=== PATIENT | male | born 1980 | race Caucasian/White ===

== ENCOUNTER 2019-01-08 15:51 | Inpatient (IN) | payer SELFPAY ==
[~2019-01-08 15:51] MED LIST: NA CHLORIDE 0.9% 1,000 ML ONE; NA CHLORIDE 0.9% 2,000 ML ONE; PROPOFOL 1,000 MG/100 ML VIAL IV ONE; RSI MEDICATION KIT IV ONE
[2019-01-08] MEDS ORDERED: ROCURONIUM 50 MG/5 ML VIAL IV ONE ×2 (16:01→16:03)
[2019-01-08 16:20] LABS: Absolute Lymphocytes (CBC) 0.8 K/uL (0.7-4.9); Basophils % 0.6 % (0-1.3); Hematocrit 37.8 % (39.6-49.0); Lymphocytes % 19.8 % (15.3-44.8); MPV 8.5 fL (7.6-11.3); RBC Red Blood Cell Count 3.83 M/uL (4.33-5.43)
--- NOTE | 2019-01-08 16:22 | RAD REPORT ---
EXAM DESCRIPTION: RAD - Chest Single View - 01/08/2019 4:16 pm CLINICAL HISTORY: Overdose, intubation COMPARISON: None. TECHNIQUE: AP portable chest image was obtained 1611 hours . FINDINGS: Endotracheal tube is in place with the tip at the T3-4 level several cm above the ángela. NG tube is curled in the stomach. Lung base atelectasis changes are present. No diffuse pulmonary edema. Heart and vasculature are norm al. No measurable pleural effusion and no pneumothorax. No acute bony abnormality seen. No acute aort ic findings suspected. IMPRESSION: ET tube and NG tube in good position. Lung base atelectasis with no diffuse pulmonary edema.
[2019-01-08 16:31] LABS: Protime INR 1.06
--- NOTE | 2019-01-08 16:34 | RAD REPORT ---
EXAM DESCRIPTION: CT - CTHCSPWOC - 01/08/2019 4:20 pm CLINICAL HISTORY: Unresponsive, unknown injury COMPARISON: None. TECHNIQUE: Axial 5 mm thick images of the head were obtained. Axial 2 mm thick images of the cervic al spine were obtained with sagittal and coronal reconstruction images generated and reviewed. All CT scans are performed using dose optimization technique as appropriate and may include automated exposure control or mA/KV adjustment according to patient size. FINDINGS: No intracranial hemorrhage, mass, edema or acute intracranial finding. No suspicion for acute infarct ion. No extra-axial fluid collections. Mastoid air cells and paranasal sinuses are clear. No globe or orbit abnormality seen. Cervical body height and alignment are normal. No disk space narrowing. No fracture or acute bony abn ormality. Central canal detail is inherently limited. Minimal posterior endplate spurring at C5-6. No paraspinal mass or hematoma. IMPRESSION: Negative CT head examination for acute or significant finding. Negative CT cervical spine examination for acute or significant finding.
[2019-01-08 16:54] LABS: ALT/SGPT 45 U/L (12-78); AST/SGOT 34 U/L (15-37); Alkaline Phosphatase 57 U/L (45-117); BUN Blood Urea Nitrogen 9 mg/dL (7-18); Bicarbonate 25 mmol/L (21-32); Bilirubin Direct 0.1 mg/dL (0-0.2); Bilirubin Total 0.3 mg/dL (0.2-1.0); Glucose Level 127 mg/dL (74-106); Potassium 3.7 mmol/L (3.5-5.1); Protein, Total 6.9 g/dL (6.4-8.2); Sodium Level 136 mmol/L (136-145); Troponin (Emerg Dept Use Only) < 0.02 ng/mL (0.0-0.045)
[2019-01-08] MEDS ORDERED: LORazepam 2 MG/ML VIAL ONE ×2 (17:21→21:07)
[2019-01-08] MEDS ORDERED: NA CHLORIDE 0.9% 1,000 ML ONE (17:22)
[2019-01-08 17:31] LABS: Arterial Blood Carboxyhemoglob 3.9 % (0-1.5); Blood Gas Oxyhemoglobin 93.2 % (94-97); Blood O2 Saturation 97.9 % (92-98.5)
--- NOTE | 2019-01-08 17:49 | ER ---
Nurse's Notes [facility] Name: Pancho Cameron Jr Age: 38 yrs Sex: Male : 1980 Arrival Date: 01/08/2019 Time: 15:59 Bed 3 Private MD: Diagnosis: Altered mental status, unspecified;Alcohol abuse with intoxication;Drug Abuse;Respiratory failure, unspecified with hypoxia Presentation: 01/08 15:55 Presenting complaint: EMS states: pt found unresponsive in his apartment by a friend, sv last seen around 1430. Known crack use stated, Narcan 2 mg IVP given with no response. Transition of care: patient was not received from another setting of care. Onset of symptoms was January 08, 2019. Risk Assessment: Do you want to hurt yourself or someone else? Unable to obtain. Care prior to arrival: Oral intubation, Cervical collar in place. Medication(s) given: Narcan IV initiated. 18 GA, in the left antecubital area, Oxygen administered. via AMBU bag. 15:55 Method Of Arrival: EMS: [facility] sv 15:55 Acuity: AMANDA 1 sv 15:55 Initial Sepsis Screen: Does the patient meet any 2 criteria? Altered Mental Status. sv Does the patient have a suspected source of infection? No. Patient's initial sepsis screen is negative. Historical: - Allergies: 16:17 Unable to obtain; sv - PMHx: 16:17 Unable to obtain; sv - PSHx: 16:17 Unable to obtain; sv - Immunization history:: Adult Immunizations unknown. - Social history:: Smoking status: unknown. - Ebola Screening: : No symptoms or risks identified at this time. Screenin:00 Abuse screen: Denies threats or abuse. Denies injuries from another. Nutritional rr5 screening: No deficits noted. Tuberculosis screening: No symptoms or risk factors identified. Fall Risk Secondary diagnosis (15 points) intubated. IV access (20 points). Gait- Impaired (20 pts.). Mental Status- Overestimates/Forgets Limitations (15 pts.). Total Tillman Fall Scale indicates High Risk Score (45 or more points). Fall prevention measures have been instituted. Side Rails Up X 2 Placed Close to Nursing Station Frequent Obs/Assessments Occuring As available patient and family educated on Fall Prevention Program and Strategies. Assessment: 16:20 General: Appears in no apparent distress. well groomed, well developed, well nourished, sg Behavior is calm, cooperative, appropriate for age. Pain: Unable to use pain scale. Does not appear to understand pain scale. Neuro: Level of Consciousness is unresponsive, Oriented to none Facial symmetry appears normal, Pupils are PERRLA. Cardiovascular: Capillary refill is brisk in bilateral fingers Patient's skin is warm and dry. Chest pain is denied. Respiratory: Airway is patent Trachea midline Respiratory effort is unlabored, relaxed, orally intubated Respiratory pattern is symmetrical, hypoventilation. Respiratory: Airway via oral airway via oral intubation. GI: Abdomen is round non-distended, Bowel sounds present X 4 quads. : No signs and/or symptoms were reported regarding the genitourinary system. EENT: No signs and/or symptoms were reported regarding the EENT system. Derm: Skin is pink, warm \T\ dry. Musculoskeletal: Circulation, motion, and sensation intact. Range of motion: intact in all extremities. 16:58 Reassessment: pt appears restless, moving arms and legs, Anusha FIGUEROA at bedside ordered sg to administer Propofol IVPB at calculated rate to reach a level of sedation, pt began on propofol at this time. 17:45 Reassessment: Patient appears in no apparent distress at this time. no signs of sg distress noted at this time, will continue to monitor. 18:40 Reassessment: Patient appears in no apparent distress at this time. pt remains sedated sg with IV medications at this time, intubated, srx2 bed in low and locked position, remains on monitors with door open, pt to be admitted to ICU, no family or friends at bedside at this time. 19:20 General: patient is on ER hold. see [employer] charting for the documentation.. rr5 01/09 11:50 Reassessment: Carley from [facility] at bedside to evaluate pt. hb Vital Signs: 01/08 15:50 BP 100 / 59; Pulse 91; Resp 20; Pulse Ox 99% on ETT ambu; sv 16:00 BP 101 / 67; Pulse 100; Resp 17; Pulse Ox 99% on ETT ambu; sv 16:10 BP 96 / 62; Pulse 102; Resp 13; Pulse Ox 100% on ETT vent; sv 16:15 Weight 100 kg; sv 16:25 BP 108 / 74; Pulse 10; Pulse Ox 100% on ETT vent; sv 16:35 BP 99 / 70; Pulse 93; Resp 16; Pulse Ox 100% on 50% FiO2 ETT vent; sv 17:25 BP 119 / 84; Pulse 89; Resp 16; Pulse Ox 100% on ETT vent; sv 18:00 BP 119 / 86; Pulse 81; Resp 18; Pulse Ox 100% ; sg 18:30 BP 125 / 93; Pulse 85 MON; Resp 16 A; Pulse Ox 100% on 35% FiO2 ETT vent; sg 19:20 BP 116 / 76; Pulse 78; Resp 16 A; Temp 98.5; Pulse Ox 100% on 30% FiO2 ETT vent; rr5 [place] Coma Score: 17:49 Eye Response: to voice(3). Verbal Response: none(1). Motor Response: withdraws from jr8 pain(4). Modifying Factors: Intubated. Total: 8. ED Course: 15:50 Maintain EMS IV. Dressing intact. Good blood return noted. Site clean \T\ dry. Gauge \T\ sv site: 18G L AC. 15:58 Inserted saline lock: 18 gauge in right antecubital area, using aseptic technique. sv ,using aseptic technique. done by Sunil TOUSSAINT. 15:59 Patient arrived in ED. jr8 15:59 Bruce Anglin PA is PHCP. jr8 15:59 Esequiel Castillo MD is Attending Physician. jr8 16:05 NGT: inserted 16 Fr. other orally verified placement of air over stomach, verified sv return of gastric contents, Placement verified by X-ray, to intermittent suction. Returned gastric contents. Patient tolerated well. 16:13 Bettye Sow, RN is Primary Nurse. sv 16:[address] via stretcher. sv 16:16 Acetaminophen Sent. sv 16:16 Basic Metabolic Panel Sent. sv 16:17 CBC with Diff Sent. sv 16:17 ETOH Level Sent. sv 16:17 Hepatic Function Sent. sv 16:17 PT-INR Sent. sv 16:17 Ptt, Activated Sent. sv 16:17 Salicylate Sent. sv 16:17 Troponin (emerg Dept Use Only) Sent. sv 16:20 Triage completed. sv 16:20 Patient has correct armband on for positive identification. Placed in gown. Call light sg in reach. Side rails up X2. security monitor on. Pulse ox on. NIBP on. Warm blanket given. Head of bed elevated. 16:38 Primary Nurse role handed off by Bettye Sow, BREANA sv 16:38 Sunil Vitale, RN is Primary Nurse. sv 16:38 Torres cath inserted, using sterile technique, 16 Fr., by ca, balloon inflated, to sv gravity drainage, urine specimen collected. returned clear yellow urine. Patient tolerated well. Criticore placed. 17:04 EKG done, by aviation technician. reviewed by Bruce FIGUEROA. sm3 17:34 glucometer results - FOR PT WITH NO ID Sent. sv 17:34 XRAY Chest (1 view) Sent. sv 17:34 CT Head Brain wo Cont Sent. sv 17:34 Urine Drug Screen Sent. sv 17:37 Urine Dipstick--Ancillary (enter results) Sent. sv 17:38 Urine collected: Torres catheter specimen, clear, faiza colored. jb1 17:46 Bria Teresa MD is Hospitalizing Provider. jr8 19:20 No provider procedures requiring assistance completed. Patient admitted, IV remains in rr5 place. intact, No redness/swelling at site. 01/09 09:08 called the [facility] at [phone] Teresa the hospitalist. eb 10:35 Krishna from [facility] called to say someone would be here within the hour. eb 16:10 Arm band placed on. sv Administered Medications: Discontinued: Propofol 5 mcg/kg/min IV at calculated rate continuous; titrate per protocol (titrate by 5-10mcg/kg/min every 10 min to max rate of 50 mcg/kg/min) 01/08 15:58 Drug: NS 0.9% 1000 ml Route: IV; Rate: 1000 ml; Site: right antecubital; sv 17:00 Follow up: Response: No adverse reaction; IV Status: Completed infusion; IV Intake: sg 1000ml 15:58 Drug: NS 0.9% 1000 ml Route: IV; Rate: 1000 ml; Site: left antecubital; sv 17:00 Follow up: Response: No adverse reaction; IV Status: Completed infusion; IV Intake: sg 1000ml 16:03 Drug: Propofol 5 mcg/kg/min Route: IV; Rate: calculated rate; Site: left antecubital; sv 16:08 Drug: Rocuronium 80 mg Route: IVP; Site: right antecubital; sv 18:45 Follow up: Response: No adverse reaction sg 17:00 Drug: Propofol 5 mcg/kg/min Route: IV; Rate: calculated rate; Site: right antecubital; sg 17:40 Follow up: Response: No adverse reaction; Rate change 25 calculated rate sg 18:00 Follow up: Rate change 35 calculated rate; IV Status: Infusion continued sg 18:46 Drug: Banana Bag - (NS 0.9% 1000 ml, foLIC Acid 1 mg, Thiamine 100 mg, Multivitamin 1 sg amp) Route: IV; Rate: calculated rate; Site: left antecubital; 19:30 Follow up: Response: No adverse reaction; IV Status: Infusion continued upon admission; rr5 IV Intake: 100ml Intake: 17:00 IV: 1000ml; Total: 1000ml. sg 17:00 IV: 1000ml; Total: 2000ml. sg 19:30 IV: 100ml; Total: 2100ml. rr5 Outcome: 17:48 Decision to Hospitalize by Provider. jr8 19:20 Admitted to ER Hold. Please see [facility] for further documentation. rr5 19:20 Condition: stable 19:20 Instructed on the need for admit. 09 13:56 Patient left the ED. sv Signatures: Altaf Bravo Stephanie, RN RN Sunil Vitale RN RN Bruce Anglin PA PA jr8 Maria Peña RN RN Tiffani Oliveira Shakira [facility] Gus Geronimo, BREANA RN rr5 Corrections: (The following items were deleted from the chart) 07:41 01/08 16:20 Neuro: Level of Consciousness is awake, alert, obeys commands, Oriented to sg person, place, time, Wheel Truer are equal bilaterally Moves all extremities. Full function Gait is steady, Speech is normal, Facial symmetry appears normal, Pupils are PERRLA, sg
--- NOTE | 2019-01-08 17:50 | EDPHYS ---
Physician Documentation [facility] Name: Pancho Cameron Jr Age: 38 yrs Sex: Male : 1980 Arrival Date: 01/08/2019 Time: 15:59 Bed 3 Private MD: ED Physician Esequiel Castillo HPI: 01/08 17:49 This 38 yrs old Male presents to ER via EMS with complaints of Unresponsive. jr8 17:49 The patient's problem is reported as altered mental status, unresponsive, to noxious jr8 stimuli. Onset: The symptoms/episode began/occurred just prior to arrival. Context: Possible contributing factors include: Patient is known to have used drugs: Persons on scene reports that the patient is known to use cocaine and was last seen normal at 1330. Associated signs and symptoms: Pertinent negatives: diaphoresis, seizure. Patient's baseline: Neuro: alert and fully oriented. Unable to obtain HPI due to patient is on ventilator. Pt presented via [facility] who were called out for an unresponsive patient, on scene pt was unresponsive to painful stimulus and unable to maintain own airway per EMS, intubated on scene and transported here. Upon arrival to Trauma room 3 pt is intubates, pupils dilated and responsive to light. . Historical: - Allergies: 16:17 Unable to obtain; sv - PMHx: 16:17 Unable to obtain; sv - PSHx: 16:17 Unable to obtain; sv - Immunization history:: Adult Immunizations unknown. - Social history:: Smoking status: unknown. - Ebola Screening: : No symptoms or risks identified at this time. ROS: 17:49 Unable to obtain ROS due to patient is on ventilator. jr8 Exam: 17:49 Radiologist reports: Unremarkable CT head/C-spine jr8 17:49 Head/Face: Normocephalic, atraumatic. 17:49 Eyes: Pupils: equal, round, and reactive to light and accomodation, dilated, bilaterally, equal, Lids and lashes: appear normal. 17:49 Neck: External neck: no acute changes, C-spine: C-collar placed COPY CLERK, crepitus, is not appreciated, Trachea: is midline with no obvious abnormalities. 17:49 Chest/axilla: Inspection: normal, no abrasion, no abscess, no assymetry, no cellulitis, no deformity, no ecchymosis, no evidence of flail chest, no paradoxical chest wall movement, no puncture, no rash, no scar(s). 17:49 Cardiovascular: Rate: tachycardic, Rhythm: regular, Pulses: Pulses are 2+ in right radial artery and left radial artery. Heart sounds: normal, normal S1and S2, Edema: is not appreciated, JVD: is not appreciated. 17:49 Respiratory: Pt intubated and on ventilator, Rate of 14 with equal breath sounds DIANA. No wheezing, ronchi, or rales noted. . 17:49 Abdomen/GI: Inspection: abdomen appears normal, Bowel sounds: normal, in all quadrants, Palpation: soft, in all quadrants. 17:49 : Male external genitalia: normal, no abrasion, no discharge, no erythema, no injury, no swelling. 17:49 Musculoskeletal/extremity: Extremities: No obvious deformities noted to extremities. No signs of trauma. . 17:49 Skin: Appearance: Color: normal in color, Temperature: normal temperature, warm, Moisture: dry. 17:49 Neuro: Pt intubated and on ventilator, pt with purposeful movement and will open eyes when verbally stimulated. Otherwise unable to fully assess neuro status. . Vital Signs: 15:50 BP 100 / 59; Pulse 91; Resp 20; Pulse Ox 99% on ETT ambu; sv 16:00 BP 101 / 67; Pulse 100; Resp 17; Pulse Ox 99% on ETT ambu; sv 16:10 BP 96 / 62; Pulse 102; Resp 13; Pulse Ox 100% on ETT vent; sv 16:15 Weight 100 kg; sv 16:25 BP 108 / 74; Pulse 10; Pulse Ox 100% on ETT vent; sv 16:35 BP 99 / 70; Pulse 93; Resp 16; Pulse Ox 100% on 50% FiO2 ETT vent; sv 17:25 BP 119 / 84; Pulse 89; Resp 16; Pulse Ox 100% on ETT vent; sv 18:00 BP 119 / 86; Pulse 81; Resp 18; Pulse Ox 100% ; sg 18:30 BP 125 / 93; Pulse 85 MON; Resp 16 A; Pulse Ox 100% on 35% FiO2 ETT vent; sg 19:20 BP 116 / 76; Pulse 78; Resp 16 A; Temp 98.5; Pulse Ox 100% on 30% FiO2 ETT vent; rr5 Jason Coma Score: 17:49 Eye Response: to voice(3). Verbal Response: none(1). Motor Response: withdraws from jr8 pain(4). Modifying Factors: Intubated. Total: 8. Procedures: 17:43 Central Line: the site was prepped with Betadine, in sterile fashion, a triple lumen jr8 catheter was inserted, in the right femoral vein, in 1 attempts. placement was verified, by blood return, the site was dressed with 4X4s, Tegaderm, foam tape, using sterile technique, the patient tolerated the procedure, well. MDM: 15:59 Patient medically screened. [facility] 17:43 Data reviewed: vital signs, nurses notes, lab test result(s), EKG, radiologic studies, jr8 CT scan, plain films. Data interpreted: Pulse oximetry: on ventilator is 100 %. Interpretation: normal. Counseling: I had a detailed discussion with the patient and/or guardian regarding: the historical points, exam findings, and any diagnostic results supporting the discharge/admit diagnosis, lab results, radiology results, the need for further work-up and treatment in the hospital. Physician consultation: Bria Teresa MD was called at 17:43, was contacted at 17:43, regarding admission, to the ICU, consult, patient's condition, and will see patient in ED. 01/08 15:59 Order name: Acetaminophen [facility] 01/08 15:59 Order name: Basic Metabolic Panel [facility] 01/08 15:59 Order name: CBC with Diff [facility] 01/08 15:59 Order name: ETOH Level [facility] 01/08 15:59 Order name: Hepatic Function [facility] 01/08 15:59 Order name: PT-INR [facility] 01/08 15:59 Order name: Ptt, Activated [facility] 01/08 15:59 Order name: Salicylate [facility] 01/08 15:59 Order name: Urine Drug Screen [facility] 01/08 15:59 Order name: Troponin (emerg Dept Use Only) [facility] 01/08 16:16 Order name: glucometer results - FOR PT WITH NO ID 01/08 16:27 Order name: CBC with Automated Diff; Complete Time: 16:47 EDMS 01/08 16:42 Order name: Protime (+INR); Complete Time: 16:47 EDMS 01/08 16:42 Order name: PTT, Activated Partial Thromb; Complete Time: 16:47 EDMS 01/08 15:59 Order name: CT Head Brain wo Cont [facility] 01/08 16:42 Order name: Salicylates Level; Complete Time: 16:47 EDMS 01/08 17:33 Order name: ABG Arterial Blood Gas; Complete Time: 17:34 EDMS 01/08 17:37 Order name: Basic Metabolic Panel; Complete Time: 17:34 EDMS 01/08 17:37 Order name: Liver (Hepatic) Function; Complete Time: 17:34 EDMS 01/08 17:37 Order name: Troponin (Emerg Dept Use Only); Complete Time: 17:34 EDMS 01/08 17:37 Order name: Acetaminophen Level; Complete Time: 17:34 EDMS 01/08 17:38 Order name: Urine Dipstick--Ancillary (enter results) 01/08 17:38 Order name: Alcohol Serum/Plasma; Complete Time: 17:34 EDMS 01/08 18:07 Order name: Urine Drug Screen; Complete Time: 07:59 EDMS 01/08 18:38 Order name: Glucose, Ancillary Testing; Complete Time: 07:59 EDMS 01/08 18:56 Order name: Urine Dipstick-Ancillary; Complete Time: 07:59 EDMS 01/09 05:31 Order name: CBC with Automated Diff; Complete Time: 07:59 EDMS 01/09 05:44 Order name: Basic Metabolic Panel; Complete Time: 07:59 EDMS 01/09 05:44 Order name: Magnesium; Complete Time: 07:59 EDMS 01/09 08:16 Order name: ABG Arterial Blood Gas [facility] 01/08 15:59 Order name: EKG; Complete Time: 16:02 [facility] 01/08 15:59 Order name: EKG - Nurse/Tech; Complete Time: 17:34 [facility] 01/08 15:59 Order name: IV Saline Lock; Complete Time: 16:16 [facility] 01/08 15:59 Order name: Labs collected and sent; Complete Time: 16:16 [facility] 01/08 15:59 Order name: Urine Dipstick-Ancillary (obtain specimen); Complete Time: 17:34 [facility] 01/08 16:01 Order name: XRAY Chest (1 view) [facility] 01/08 16:01 Order name: NG Tube; Complete Time: 16:16 01/08 16:01 Order name: Torres; Complete Time: 16:16 01/08 16:01 Order name: Glucose Level; Complete Time: 16:16 01/08 19:18 Order name: RAD; Complete Time: 07:59 EDMS 01/08 19:18 Order name: CT; Complete Time: 07:59 EDMS Administered Medications: Discontinued: Propofol 5 mcg/kg/min IV at calculated rate continuous; titrate per protocol (titrate by 5-10mcg/kg/min every 10 min to max rate of 50 mcg/kg/min) 15:58 Drug: NS 0.9% 1000 ml Route: IV; Rate: 1000 ml; Site: right antecubital; sv 17:00 Follow up: Response: No adverse reaction; IV Status: Completed infusion; IV Intake: sg 1000ml 15:58 Drug: NS 0.9% 1000 ml Route: IV; Rate: 1000 ml; Site: left antecubital; sv 17:00 Follow up: Response: No adverse reaction; IV Status: Completed infusion; IV Intake: sg 1000ml 16:03 Drug: Propofol 5 mcg/kg/min Route: IV; Rate: calculated rate; Site: left antecubital; sv 16:08 Drug: Rocuronium 80 mg Route: IVP; Site: right antecubital; sv 18:45 Follow up: Response: No adverse reaction sg 17:00 Drug: Propofol 5 mcg/kg/min Route: IV; Rate: calculated rate; Site: right antecubital; sg 17:40 Follow up: Response: No adverse reaction; Rate change 25 calculated rate sg 18:00 Follow up: Rate change 35 calculated rate; IV Status: Infusion continued sg 18:46 Drug: Banana Bag - (NS 0.9% 1000 ml, foLIC Acid 1 mg, Thiamine 100 mg, Multivitamin 1 sg amp) Route: IV; Rate: calculated rate; Site: left antecubital; 19:30 Follow up: Response: No adverse reaction; IV Status: Infusion continued upon admission; rr5 IV Intake: 100ml Disposition: 01/09 15:43 Co-signature as Attending Physician, Esequiel Castillo MD I agree with the assessment and kdr plan of care. Disposition: 01/08/19 17:48 Hospitalization ordered by Bria Teresa for Inpatient Admission. Preliminary diagnosis are Altered mental status, unspecified, Alcohol abuse with intoxication, Drug Abuse, Respiratory failure, unspecified with hypoxia. - Bed requested for [facility] ER HOLD. - Status is Inpatient Admission. sv - Condition is Fair. - Problem is new. - Symptoms have improved. UTI on Admission? No Signatures: Dispatcher [employer] EDMS Bettye Sow RN RN Sunil Vitale RN RN Esequiel Castillo MD MD [email or web address] Bruce Anglin PA PA jr8 Mirta Jaime RN RN Gus Geronimo RN rr5 Corrections: (The following items were deleted from the chart) 01/08 19:07 17:48 Hospitalization Ordered by Bria Teresa MD for Inpatient Admission. Preliminary cg diagnosis is Altered mental status, unspecified; Alcohol abuse with intoxication; Drug Abuse; Respiratory failure, unspecified with hypoxia. Bed requested for Intensive Care Unit. Status is Inpatient Admission. Condition is Fair. Problem is new. Symptoms have improved. UTI on Admission? No. jr8 19:12 19:07 01/08/2019 17:48 Hospitalization Ordered by Bria Teresa MD for Inpatient cg Admission. Preliminary diagnosis is Altered mental status, unspecified; Alcohol abuse with intoxication; Drug Abuse; Respiratory failure, unspecified with hypoxia. Bed requested for Intensive Care Unit. Status is Inpatient Admission. Condition is Fair. Problem is new. Symptoms have improved. UTI on Admission? No. cg 19:15 19:12 01/08/2019 17:48 Hospitalization Ordered by Bria Teresa MD for Inpatient cg Admission. Preliminary diagnosis is Altered mental status, unspecified; Alcohol abuse with intoxication; Drug Abuse; Respiratory failure, unspecified with hypoxia. Bed requested for [facility] ER HOLD. Status is Inpatient Admission. Condition is Fair. Problem is new. Symptoms have improved. UTI on Admission? No. cg 01/09 13:56 01/08 19:15 01/08/2019 17:48 Hospitalization Ordered by Bria Teresa MD for Inpatient sv Admission. Preliminary diagnosis is Altered mental status, unspecified; Alcohol abuse with intoxication; Drug Abuse; Respiratory failure, unspecified with hypoxia. Bed requested for [facility] ER HOLD. Status is Inpatient Admission. Condition is Fair. Problem is new. Symptoms have improved. UTI on Admission? No. cg
[2019-01-08] MEDS ORDERED: PROPOFOL 1,000 MG/100 ML VIAL IV ONE (17:53)
[2019-01-08] MEDS ORDERED: FLUMAZENIL 0.1 MG/ML (5 mL VIAL) IV PRN (17:54)
[2019-01-08] MEDS ORDERED: LORazepam 2 MG/ML VIAL IV PRN ×2 (17:55→20:27)
[2019-01-08 18:01] LABS: Phencyclidine NEGATIVE (NEGATIVE)
[2019-01-08 18:02] LABS: Barbiturates NEGATIVE (NEGATIVE); Benzodiazepines POSITIVE (NEGATIVE); Cocaine POSITIVE (NEGATIVE); METHAMPHETAM NEGATIVE (NEGATIVE); Methadone NEGATIVE (NEGATIVE); Opiates NEGATIVE (NEGATIVE); THC Cannibis POSITIVE (NEGATIVE)
[2019-01-08 18:46] LABS: Urine Blood TRACE (NEG); Urine Glucose NEGATIVE (NEG); Urine Protein 1+ (NEG)
[2019-01-08] MEDS ORDERED: FOLIC ACID 1 MG, MULTIVITAMINS INJ 10 ML, THIAMINE HCL 100 MG in NA CHLORIDE 0.9% 1,000 ML IV SCH (19:00)
[2019-01-08] MEDS ORDERED: PROPOFOL 1,000 MG/100 ML VIAL IV PRN (20:27)
[2019-01-08] MEDS ORDERED: ONDANSETRON 4 MG/2 ML VIAL IV PRN (20:27)
[2019-01-08] MEDS ORDERED: HALOPERIDOL LACT 5 MG/ML INJ IV PRN (20:27)
[2019-01-08] MEDS ORDERED: ACETAMINOPHEN 500 MG TAB PO PRN (20:27)
[2019-01-08] MEDS ORDERED: FENTANYL CITR 100 MCG/2 ML IV PRN (20:27)
[2019-01-08] MEDS ORDERED: MIDAZOLAM HCL 2 MG/2 ML INJ IV PRN (20:27)
[2019-01-08] MEDS ORDERED: NA CHLORIDE 0.9% 250 ML IV PRN (20:27)
[2019-01-08] MEDS ORDERED: FAMOTIDINE 20 MG/2 ML VIAL IV SCH (21:00)
[2019-01-08 23:08] VITALS: O2SAT 99; BMI 29.9
[2019-01-09] MEDS ORDERED: PROPOFOL 0 MG/0 ML VIAL IV ONE (00:03)
[2019-01-09] MEDS ORDERED: LORazepam 2 MG/ML VIAL ONE (00:47)
[2019-01-09] MEDS ORDERED: FENTANYL CITR 100 MCG/2 ML ONE (01:44)
[2019-01-09] MEDS ORDERED: ACETAMINOPHEN 650MG/RECT SUPP PR ONE ×2 (02:26→02:38)
--- NOTE | 2019-01-09 03:19 | HP ---
Date of Admission: 01/08/2019 Chief Complaint: Unresponsiveness, alcohol intoxication. History Of Present Illness: The patient is a 38-year-old male with no known medical history, who apparently was found unresponsive by some of his friends, was apneic, required intubation. Apparently, a friend in his house said he has history of previous cocaine use. The patient was started on ventilator. His workup was largely unremarkable. ABG was unremarkable. His tox screen was positive for benzodiazepines, cocaine and marijuana. Serum alcohol level was 117. Acetaminophen level was negative. The patient was then referred for admission. Symptoms are constant, moderate, progressively worsening. It should be noted that the history is taken from ER staff and previous records. There is no family at the bedside. The patient is unable to participate in history due to his medical condition. Past Medical History: Unknown. Past Surgical History: Unknown. Allergies: UNABLE TO BE OBTAINED. Medications: We will reconcile once obtained. Family History: Unable to obtain. Social History: Patient does have history of cocaine use and alcohol use. Review of Systems: Unable to obtain due to the patient's medical condition. Physical Examination: Vital Signs: Blood pressure 100/59, pulse 91, respirations 20, O2 99% on ET tube. General: Intubated, sedated, however still responding somewhat to commands, thrashing about. HEENT: Normocephalic, atraumatic. PERRLA. ET tube in place. Poor dentition. Neck: Supple. Trachea midline. CV: S1, S2. Sinus tachycardia. Peripheral pulses present. Respiratory: Moving air well bilaterally. No wheezing. Gastrointestinal: Abdomen is soft, nondistended. Positive bowel sounds. Extremities: No clubbing, cyanosis, or edema. Neuro: Moves all 4 extremities. Does respond to some commands. Agitated. Skin: No rashes. Normal skin turgor. Laboratory Data: Sodium 136, potassium 3.7, chloride 101, CO2 25, BUN 9, creatinine 1.09, glucose 127, calcium 7.5. Troponin less than 0.02. ABG; pH 7.3, pCO2 38.6, pO2 109, bicarb 22. UA pending. Tox screen shows positive for benzos, cocaine and marijuana. Serum alcohol level was 117. Acetaminophen level is less than 2. WBC 3.9, H and H 13.1 and 37.8, platelets 211. CT of head and cervical spine negative for any acute findings. Chest x-ray, ET tube and NG tube in good position. Lung base atelectasis with no diffuse pulmonary edema. Assessment And Plan: A 38-year-old male with: 1. Acute respiratory failure likely secondary to alcohol and drug abuse. We will continue with mechanical ventilation. We will consult Pulmonology. Likely start weaning trials once condition is more stabilized. 2. Alcohol abuse. Alcohol level was 117. We will place on alcohol withdrawal [facility] protocol for withdrawal symptoms. Ativan p.r.n. We will start on thiamine, folate, banana bag and IV fluids with multivitamins. 3. Cocaine abuse. We will financial counselor once awake. 4. Marijuana abuse. [employer] once awake. Plan: Admit the patient to ICU, place as inpatient. Length of stay greater than 2 midnights. ADDENDUM: Past medical history schizoaffective disorder Past surgical history none Social history patient recently released from [facility]. Smokes and drinks regularly denies illicit substance abuse however positive for cocaine and marijuana Family history no premature coronary disease in the family Medications Tracie WALLACE/LAMIN Voice ID: [id number] CLAUDINE
[2019-01-09] MEDS ORDERED: PROPOFOL 1,000 MG/100 ML VIAL IV ONE ×2 (03:30→07:05)
[2019-01-09] MEDS ORDERED: NA CHLORIDE 0.9% 1,000 ML ONE (04:58)
[2019-01-09 05:29] LABS: Basophils % 0.5 % (0-1.3); Hematocrit 38.3 % (39.6-49.0); Lymphocytes % 25.9 % (15.3-44.8); MPV 8.3 fL (7.6-11.3); RBC Red Blood Cell Count 3.88 M/uL (4.33-5.43)
[2019-01-09 05:43] LABS: BUN Blood Urea Nitrogen 9 mg/dL (7-18); Bicarbonate 27 mmol/L (21-32); Glucose Level 83 mg/dL (74-106); Potassium 3.4 mmol/L (3.5-5.1); Sodium Level 143 mmol/L (136-145)
[2019-01-09] MEDS ORDERED: KCL 20 MEQ/100 mL IVPB 20 MEQ/100 ML BAG IV SCH ×2 (06:00→08:00)
[2019-01-09] MEDS ORDERED: KCL 20 MEQ/100 mL IVPB 20 MEQ/100 ML BAG IV ONE (08:05)
[2019-01-09 08:14] LABS: Arterial Blood Carboxyhemoglob 1.1 % (0-1.5); Blood O2 Saturation 98.9 % (92-98.5)
[2019-01-09] MEDS ORDERED: ENOXAPARIN 40 MG/0.4 ML SQ SCH (09:00)
--- NOTE | 2019-01-09 10:33 | EKG ---
Test Date: 2019-01-08 Test Time: 16:39:25 Hardboard Supervisor: ROSCOE MEASUREMENT RESULTS: Intervals: Rate: 100 WY: 184 QRSD: 90 QT: 372 QTc: 479 [place]: P: 65 WY: 184 QRS: 52 T: 50 INTERPRETIVE STATEMENTS: Normal sinus rhythm Normal ECG No previous ECG available for comparison Electronically Signed On 01-09-19 10:31:39 CDT by Fernando Pat
[2019-01-09 14:01] VITALS: BP 111/87; TEMP 98
--- NOTE | 2019-01-10 09:18 | DS ---
Date of Discharge: 01/09/2019 Discharge Diagnoses: 1.Acute respiratory failure with hypoxia secondary to alcohol and drug misuse. 2.Acute metabolic encephalopathy, resolved. 3.Alcohol abuse, counseled. 4.Cocaine abuse, counseled. 5.Marijuana abuse, counseled. 6.Schizoaffective disorder, on Haldol. Hospital Course: Patient is a 38-year-old male, who has recently released from [facility] yesterday, was working on a truck, apparently was drinking and doing drugs illegally including cocaine and marijuan a. Most likely took too much and became unresponsive. EMS was called. Patient was brought into the hospital. He was intubated. Patient was started on IV fluids, multivitamins, and monitored for wit hdrawal symptoms. Patient became more alert. He was extubated the following day. CT scan of the he ad and cervical spine were negative. Chest x-ray did not show any acute changes. His labs were with in normal limits. However, he did develop some low potassium, which was corrected. Patient was eval uated by [facility]. There were no suicidal or homicidal ideation or plans. Patient was recommended to [facility] outpatient. I recommended that the patient go to inpatient psychiatric facility voluntarily due to his history of schizoaffective disorder and substance abuse. However, he refused. He is awak e, alert, and oriented x3. He understands the consequences of continuing alcohol and substance abuse . He was counseled against it. Patient was then discharged in a stable condition. Activity: As tolerated. Medications: As per medication reconciliation list. Followup: Follow up with [facility] in 2 to 3 days. Return to ER for worsening condition. Avoid alcohol and substance abuse. Diet: Regular. Physical Examination: General: Awake, alert, and oriented x3, not in any acute distress. CV: S1, S2. Respiratory: Moving air well bilaterally. Abdomen: Soft, nontender, nondistended. Positive bowel sounds. Extremities: No clubbing, cyanosis, or edema. Neurologic: Nonfocal Psychiatric: Mood is okay. Affect is full. Insight and judgment are fair. Time Spent: Total time spent discharging the patient was 37 minutes. /LAMIN Voice ID: [id number] Report ID: [id number]
== END 2019-01-09 14:04 | disposition home or self-care (01) | DRG 208 ==
LOC: ER 15:51 → ERHOLD 17:48
PROVIDERS: ADMIT Family Medicine; ATTEND Family Medicine
PROC: 0BH17EZ Insertion of Endotracheal Airway into Trachea, Via Natural or Artificial Opening (ICD-10-PCS; principal; 2019-01-08)
PROC: 5A1935Z Respiratory Ventilation, Less than 24 Consecutive Hours (ICD-10-PCS; 2019-01-08)
DX: J96.01 Acute respiratory failure with hypoxia (principal); G93.41 Metabolic encephalopathy; F14.10 Cocaine abuse, uncomplicated; F10.10 Alcohol abuse, uncomplicated; F12.10 Cannabis abuse, uncomplicated; F25.9 Schizoaffective disorder, unspecified; F17.210 Nicotine dependence, cigarettes, uncomplicated
CPT/HCPCS: 36415; 51702; 70450; 71045; 72125; 80048; 80076; 80307; 80320; 80329; 81003; 82805; 82962; 83735; 84484; 85025; 85610; 85730; 93005; 94002; 94003; 96361; 96365; 96367; 96375; 99291; 99292; J2704; J3010; J3411; J7030